=== PATIENT | male | born 1995 | race Caucasian/White ===

== ENCOUNTER 2019-10-03 09:23 | Emergency (ER) | payer SELFPAY ==
[2019-10-03 09:27] VITALS: BP 169/85; PULSE 103; RESP 18; O2SAT 98; BMI 29.5
[2019-10-03 09:34] VITALS: PULSE 98; RESP 16; O2SAT 97
--- NOTE | 2019-10-03 09:36 | XR_ITS ---
WS: [id number] Lumbar spine, 3 views, 10/03/2019 Clinical Data: injury Comparison: None. Findings: No compression fractures or subluxation is seen. No disc space narrowing is seen. The transverse proc esses and SI joints are normal. XR/XR lumbar spine 2-3V* [id number] Impression: Negative lumbar spine.
--- NOTE | 2019-10-03 09:36 | XR_ITS ---
WS: [id number] Thoracic spine, 10/03/2019 Clinical Data: injury Comparison: None. Findings: No compression fractures are seen. The disc heights are normal. XR/XR thoracic spine 3V* [id number] Impression: Negative thoracic spine.
--- NOTE | 2019-10-03 09:36 | XR_ITS ---
WS: [id number] Chest with right rib detail, 10/03/2019 Clinical Data: injury Comparison: None. Findings: The lungs show no nodules, masses, or effusions. The heart is normal. No pneumonia or pneumothorax is seen. The ribs are intact. No rib fractures seen. No subcutaneous emphysema is present. XR/XR ribs RT mn 3V w CXR1V [id number] Impression: Negative chest with right rib detail.
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
--- NOTE | 2019-10-03 09:47 | PC.NURSE ---
Radiology present in room taking images per orders.
[2019-10-03 10:25] VITALS: BP 137/66; PULSE 96; RESP 18; O2SAT 97
== END 2019-10-03 10:26 | disposition home or self-care (01) ==
PROVIDERS: Emergency Provider Nurse Practitioner Family
DX: S20.221A Contusion of right back wall of thorax, initial encounter (principal); V03.90XA Pedestrian on foot injured in collision with car, pick-up truck or van, unspecified whether traffic or nontraffic accident, initial encounter; Y92.481 Parking lot as the place of occurrence of the external cause
CPT/HCPCS: 71101; 72072; 72100; 99281; 99283

== ENCOUNTER 2023-03-12 06:16 | Emergency (ER) | payer OTHER, SELFPAY ==
[2023-03-12 06:19] VITALS: PULSE 73; RESP 18; TEMP 36.5; O2SAT 98; BMI 31.1
[2023-03-12 06:27] VITALS: BP 116/67
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
[2023-03-12] MEDS: tetanus-dipt-pertussis 0.5 mL SDV IM (06:38)
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
[2023-03-12 06:49] VITALS: PULSE 67; RESP 14; O2SAT 96
[2023-03-12 06:57] LABS: Basophils # 0.1 10^3/uL (0.0-0.1); Basophils % 0.9 %; Eosinophils # 0.4 10^3/uL (0.0-0.8); Eosinophils % 4.6 %; Hematocrit 45.4 % (42.0-52.0); Hemoglobin 15.4 g/dL (11.7-16.6); Lymphocytes # 2.8 10^3/uL (0.8-4.8); Lymphocytes % 29.9 %; Mean Corpuscular HGB Conc 33.9 g/dL (30.0-36.0); Mean Corpuscular Hemoglobin 27.7 pg (28.0-34.0); Mean Corpuscular Volume 81.8 fl (80-94); Mean Platelet Volume 10.1 fL (7.4-10.4); Monocytes # 0.6 10^3/uL (0.2-0.9); Monocytes % 6.2 %; Neutrophils # 5.37 10^3/uL (1.8-7.7); Neutrophils % 57.6 %; Nucleated Red Blood Cells % 0 %; Platelet Count 190 10^3/cmm (130-400); Red Blood Count 5.55 10^6/uL (4.1-5.3); Red Cell Distribution Width 12.8 % (12.1-15.1); White Blood Count 9.3 10^3/uL (4.0-10.0)
[2023-03-12] MEDS: iohexol 350 mg/mL 500 mL Btl (per mL) IV (07:07)
[2023-03-12 07:09] LABS: Add Urine Microscopic? NO; Charge for UA Resulting for Rev
[2023-03-12 07:16] LABS: Alanine Aminotransferase 27 U/L (0-41); Albumin Level 4.3 g/dL (3.5-5.2); Alkaline Phosphatase 50 U/L (40-130); Anion Gap 16.9 (5-19); Aspartate Amino Transferase 11 U/L (0-40); Blood Urea Nitrogen 10 mg/dL (6-20); Calcium 9.2 mg/dL (8.5-10.5); Carbon Dioxide 23 mmol/L (22-29); Chloride 102 mmol/L (98-107); Globulin 2.9 g/dL (1.3-4.6); Glomerular Filtration Rate 88.3 mL/min (90-130); Glucose 136 mg/dL (65-115); Osmolality Calculated 287 mOsm/kg (285-295); Potassium 3.9 mmol/L (3.5-5.1); Sodium 138 mmol/L (136-145); Total Bilirubin 0.7 mg/dL (0.15-1.2); Total Protein 7.2 g/dL (6.6-8.7)
[2023-03-12 07:24] LABS: Glucose Urine UA Norm (Normal); Ketones Urine Negative (Negative); Protein Urine Neg (Negative); Urine Appearance Clear (CLEAR); Urine Color Dark Yellow (Yellow); pH Urine 5 (5-7)
[2023-03-12 07:25] LABS: Bilirubin Urine 1+ (Negative); Blood Urine Neg (Negative); Leukocyte Esterase Urine Negative (Negative); Nitrate Urine Negative (Negative); Urobilinogen Urine 1 mg/dL (Negative)
[2023-03-12] MEDS: ondansetron 2 mg/ML SDV 2 mL 4 MG IVP (07:38)
[2023-03-12] MEDS: morphine 4 mg/mL SDV 1 mL IVP (07:38)
[2023-03-12 07:43] VITALS: BP 128/95; PULSE 67; RESP 18; O2SAT 99
--- NOTE | 2023-03-12 08:10 | XR_ITS ---
WS: [id number] Exam: XR wrist LT min 3V* [id number] Date/Time of Exam: 03/12/2023 8:11 AM Reason For Exam: pain trauma There is a comminuted nondisplaced fracture of the distal radius. There is comminution of the radial styloid. Numerous fracture lines extend into the radiocarpal joint. No dislocation identified. Soft t issue swelling noted. XR/XR wrist LT min 3V* [id number] IMPRESSION: 1. Comminuted nondisplaced distal radial fracture as detailed above.
[2023-03-12 09:16] VITALS: BP 145/93; PULSE 76; RESP 18; O2SAT 97
[2023-03-12 09:17] VITALS: BP 145/93; PULSE 76; RESP 18; O2SAT 97
--- NOTE | 2023-03-12 09:53 | PC.SOCIAL ---
Addendum entered by Kenya Monroe 03/29/23 14:26: Patient had a follow up appointment scheduled with ortho - patient did attend appointment Original Note: Ortho F/u Referral sent to ortho at this time. Clinic to contact patient with appt date/time.
== END 2023-03-12 09:45 | disposition home or self-care (01) ==
PROVIDERS: Emergency Provider Family Medicine
DX: S43.102A Unspecified dislocation of left acromioclavicular joint, initial encounter (principal); S52.592A Other fractures of lower end of left radius, initial encounter for closed fracture; S62.002A Unspecified fracture of navicular [scaphoid] bone of left wrist, initial encounter for closed fracture; V20.49XA Other motorcycle driver injured in collision with pedestrian or animal in traffic accident, initial encounter; Z23 Encounter for immunization
CPT/HCPCS: 29125; 70450; 71045; 71260; 72125; 73030; 73110; 74177; 80053; 81003; 85025; 90715; 96374; 96375; 99285; J2270; J2405; Q9967

== ENCOUNTER 2023-03-22 06:54 | Outpatient (CLI) | payer OTHER, SELFPAY ==
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
== END 2023-03-22 06:55 | disposition home or self-care (01) ==
LOC: RAD 06:56
PROVIDERS: Visit Provider Student in an Organized Health Care Education/Training Program
DX: S52.572A Other intraarticular fracture of lower end of left radius, initial encounter for closed fracture (principal); S62.125A Nondisplaced fracture of lunate [semilunar], left wrist, initial encounter for closed fracture; X58.XXXA Exposure to other specified factors, initial encounter
CPT/HCPCS: 73200

== ENCOUNTER 2023-03-23 09:11 | Day surgery (SDC) | payer OTHER, SELFPAY ==
[2023-03-22 09:25] VITALS: BMI 30.2
[2023-03-23] VITALS (12 sets, daily range): BP systolic 101–145; BP diastolic 58–90; PULSE 67–96; RESP 14–16; TEMP 36.1–37.1; O2SAT 96–100
--- NOTE | 2023-03-23 | XR_ITS ---
WS: [id number] XR wrist LT 2V [id number] REASON FOR EXAM: ORIF left wrist FINDINGS: Plate and screw fixation of particle vertical distal mid metaphysis into the radial articular surface . Horizontal fracture of the radial styloid. Fracture fragments are in good position and alignment. Surgical appliances intact and in proper position and alignment. XR/XR wrist LT 2V [id number] IMPRESSION: Left wrist fracture with fixation as above.
[2023-03-23] MEDS: sodium chloride 0.9% 1,000 ML 30 ML IV (10:10)
[2023-03-23] MEDS: acetaminophen 1,000 MG/100 ML PIGGYBACK 400 MG IV (10:11)
[2023-03-23] MEDS: ketorolac 30 mg/mL INJ IVP (10:11)
[2023-03-23] MEDS: scopolamine 1.5 Patch 1 PATCH TRANSDERMA (10:12)
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
--- NOTE | 2023-03-23 11:47 | ANES.PREANE2 ---
Pre-Anesthetic Assessment Height/Weight: Height 1.75 m Weight 92.986 kg Temp Pulse Resp BP Pulse Ox O2 Del Method 98.8 F 96 14 106/67 96 Room Air 03/23/23 09:39 03/23/23 10:50 03/23/23 10:50 03/23/23 10:50 03/23/23 10:50 03/23/23 10:50 Preop Diagnosis: Left Distal Radius fracture Operation Date: 03/23/23 10:40 Proposed Procedures p Open Reduction Internal Fixation of Right Distal Radius 82607, S52.509A(Right) - Garcia Ruiz, Familial anesthetic complications: none Was Beta Lisset taken within 24 hours: N/A Was Clonidine taken within 24 hours: N/A Last intake: Intake Last Liquid Date 03/22/23 Last Liquid Time 21:00 Last Solid Date 03/22/23 Last Solid Time 15:00 Social No alcohol and No tobacco Exam alert, oriented x 3, clear to auscultation bilaterally and regular rate & rhythm Airway Submandibular: within normal limits Cervical ROM: within normal limits Mallampati: Class II Dentition: chipped History/ROS No significant history except as noted Anesthetic Plan ASA status: 1 Anesthesia: General and Regional (specify below) (Left interscalene nerve blk) Medications/Allergies Allergies Allergy/AdvReac Type Severity Reaction Status Date / Time No Known Allergies Allergy Verified 10/03/19 09:34 Current Medications Generic Name Dose Route Start Last Admin Trade Name Freq PRN Reason Stop Dose Admin Sodium Chloride 1,000 mls @ 30 mls/hr 03/23/23 09:30 03/23/23 10:10 Sodium Chloride 0.9% IV 03/24/23 09:29 30 mls/hr .Q24H YURIY Administration Scopolamine 1 patch 03/23/23 09:27 03/23/23 10:12 Scopolamine 1.5 Patch TRANSDERMA 1 patch ONCE PRN Administration anesthetic related nausea PFSH Anesthesia Social History Smoking and tobacco status: never smoked Data Anesthesia Cardiac Studies: No Data to Display
[2023-03-23] MEDS: ceFAZolin 2,000 MG in sodium chloride 0.9% (plus) 50 ML 100 MG IV (11:49)
--- NOTE | 2023-03-23 12:03 | SUR.OPER ---
Family Notified Of Patient's Status Via Phone.
--- NOTE | 2023-03-23 13:24 | SUR.OPER ---
Family Notified Of Patient's Status Via Phone.
--- NOTE | 2023-03-23 14:52 | ANE.PACU2 ---
Inpatient post-anesthesia follow up: Airway intact: Yes Vital signs: Temperature 97.4 F Pulse Rate 78 Respiratory Rate 14 Blood Pressure 141/89 Pulse Oximetry 98 Oxygen Delivery Me thod Room Air Oxygen Flow Rate 6 Fraction of Inspir ed Oxygen Hydration adequate: Yes Nausea and vomiting: No Pain level: 2 Mental status: Baseline
--- NOTE | 2023-03-23 18:44 | PM.OP2 ---
Brief Operative Note Date of procedure: 03/23/23 Pre-op diagnosis: Left distal radius fracture intra-articular Post-op diagnosis: same (4 part intra-articular fracture) Procedure Done: Left distal radius open reduction internal fixation( 4 part intra-articular) Surgeon: Garcia Ruiz Estimated blood loss (mL): 15 Complications: None Post-op Plan: Patient taken to PACU in stable condition recovering well. Splint on in place clean dry and intact. Patient receive appropriate discharge instructions as well as pain medication postoperatively. Elevation ice as needed none weightbearing to left upper extremity. Follow-up in the orthopedic office in 2 weeks. Condition: stable Disposition: same day Coding Level of Care Code Acute Code for Harriett Fwkrystal
--- NOTE | 2023-03-23 18:46 | PM.PACU ---
PACU note Narrative: Patient taken to PACU in stable condition, recovering well. Pain controlled. Patient has regional anesthesia on affect unable assess motor or sensory. Splint on in place clean dry and intact fingertips warm well-perfused brisk cap refill less than 2 seconds. Exam: awake Disposition: discharged
--- NOTE | 2023-03-23 18:47 | P.OP_ITS ---
Operative Report Date of procedure: March 23, 2023 Pre-op diagnosis: Preop Diagnosis Left Distal Radius fracture Procedure: Post-op diagnosis: Same, 4 part intra-articular Procedure done: Left distal radius open reduction internal fixation, 4 part intra-articular Closed treatment Left AC Joint Separation Implants: Arthrex 3-hole standard volar locking plate Combination of locking and nonlocking screws 2.7 mm distal Combination of locking and nonlocking screws 3.5 mm proximal Surgeon: Garcia Ruiz DO Anesthesia: Nerve Block (Regional) Estimated blood loss: 15 mL Tourniquet time: 71 minutes IV fluids: See anesthesia record Complications: None Findings: See operative report narrative Condition: stable Disposition: same day Brief History: Patient is a 27-year-old male who presented to my office for a [id number]-[id number]-[id number] left distal radius fracture.? Patient also sustained a left grade 2 AC joint separation which should be treated closed. Given his articular impaction and depressed fracture fragments of the distal radius and his young age would recommend surgical intervention. We had a detailed discussion in the office about nonoperative and operative intervention.? At this point time I feel through shared decision making her best option would be open reduction internal fixation.?? As result through shared decision making patient would like to proceed with ORIF left distal radius fracture.? Detail the risk benefits complication alternatives to treatment option.? Understanding risk for surgery patient elects to proceed with surgical intervention.? All questions been answered at this time. Procedure: Patient seen and evaluated in the preoperative holding area.? Consent reviewed and signed with patient.? Correct extremities were marked and consent was reviewed and signed.? Patient was seen and evaluated by anesthesia department.? Underwent regional anesthesia. Once cleared for surgery pt was taken back to the operative suite.? Patient was then transported into the operative suite transferred furred to an OR table all bony prominences well-padded patient was appropriate secured to bed in supine position.? An armboard was applied to the left upper extremity.? The left upper extremity had a nonsterile tourniquet applied.? Patient subsequently was then prepped and draped in standard orthopedic fashion she underwent anesthesia per the anesthesia department.? A final timeout was performed.? Patient received appropriate preoperative antibiotics. Esmarch was used exsanguinate the left? upper extremity and tourniquet was insufflated to 250 mmHg. A standard modified FCR volar approach was performed to the left distal radius.? Sharp scalpel incision through skin and subcutaneous tissue.? I then switched to Littler dissection scissors identify the FCR tendon releases out of the sheath both proximally and distally mobilized the tendon ulnarly and then subsequently incised the floor of the FCR tendon sheath with care to just incise the floor.? I then bluntly sweep the FPL tendon muscle belly ulnarly and placed blunt self- retaining retractor.? At this point time I direct visualization of the pronator quadratus which was incised in standard L fashion off the radial and distal border in the distal radius and fracture site was scraped clean of interposed muscle belly.? I then identified the 4 part intra-articular left distal radius fracture.? This was subsequently opened above and freed of interposing muscle belly as well as periosteum and fracture hematoma.? I did have to utilize my [place] which was placed through the fracture pattern and disengage the fracture and performed manual manipulation and anatomic reduction of the distal radius fracture. There was one main dye punch fragment that was depressed that I utilized a [place]'s through the fracture site and localized this with mini C arm and subsequently tamped up this fracture piece to satisfactory position. This held its position on its own as result my plan was to utilize a volar locking plate to [place] the [place] bone and tamped up fracture fragment in order to support this from further depression. ?Once satisfied with reduction and had appropriate anatomic reduction of the volar cortex.? This was confirmed with mini C arm in multiple orthogonal imaging.? At this point time? I selected a Arthrex anatomic distal radius plate utilizing a standard 3-hole plate which would have appropriate spread distally. Given majority of patient's fracture fragments were radial and along the styloid and scaphoid facet I did slightly turn the plate radially just to accommodate for a more focused fixation supporting these fracture fragments. This was then placed up to the distal radius while maintaining my reduction pins were placed distally and proximally to confirm appropriate placement of the plate along the distal radius.? Minor adjustments were made and once I was satisfied I then subsequently drilled a bicortical 3.5 screw proximally in the oblong hole to allow for appropriate sliding of the distal radius plate appropriately to perfect position on the distal radius.? This had excellent fixation and purchase and brought the plate to bone.? While maintaining my reduction I then confirmed in multiple orthogonal imaging that my plate was in appropriate position.? Once satisfied with my position I then subsequently placed the peek targeting guide on the distal locking screws with Arthrex.? The locking guide was then subsequently loaded and I subsequently drilled and placed a fully threaded cortical screw to compress the plate to bone for the distal fracture fragment.? This was performed with plan to then remove this and placed a shorter locking screw had bicortical fixation with excellent purchase and appropriate reduction of my volar tilt and bringing plate to bone of the distal fragment and plate.? Once I was satisfied with my plate position as well as reduction of the distal radius which was confirmed on AP oblique and lateral imaging I then subsequently drilled measured and placed 3 locking screws around this cortical screw.? Then I subsequently removed the cortical screw and placed a shorter locking screw that did not penetrate the dorsal cortex.? I added another locking screw distally towards the radial styloid to further increase my radial styloid fixation. The screw was subsequently drilled measured and placed. This completed my distal fixation.? I did utilize mini C arm to confirm appropriate placement of the screws these were all within the distal radius and no joint involvement within the radiocarpal joint or the DRUJ.? These had appropriate subchondral support and maintenance of reduction and fixation of the distal radius fracture.? I then turned my attention and screwed in the locking guides for my final to screws proximally these were then subsequently drilled measured and appropriate length locking screws were then placed proximally with excellent fixation and locking technology into the plate.? This completed my construct.? The peek guide was subsequently removed and final imaging of the left distal radius open reduction internal fixation was taken of AP lateral as well and is orthogonal imaging.? I then took a inclination view which showed my radial styloid screw was out of the penetration of the joint.? All my distal screws were appropriate length did not penetrate dorsal cortex and did not penetrate the joint.? This completed my fixation.? Wrist was then taken through pronation supination and stressed the DRUJ which was found to be stable.? The wound was then thoroughly irrigated.? Tourniquet was then subsequently deflated.? Hemostasis satisfactory with bipolar electrocautery.? I then subsequently placed interrupted 3-0 Vicryl sutures for subcutaneous tissue and then subsequently placed a nylon the skin for closure.? Incision was then dressed with Xeroform 4 x 4's Kerlix cast padding and a volar Ortho-Glass splint was then applied with Vinayak wrap and placed in a sling.? Disposition: Patient taken to PACU in stable condition recovering well receive appropriate discharge instructions as well as pain medication postoperatively.? Maintain splint until follow-up.? Nonweightbearing left upper extremity We will follow-up with Dr. Ruiz in the office in 2 weeks. We will continue with conservative approach of AC joint as well. If any questions or concerns feel free to contact the office.
== END 2023-03-23 15:30 | disposition home or self-care (01) ==
PROVIDERS: Visit Provider Student in an Organized Health Care Education/Training Program
PROC: (CPT 25609; principal; 2023-03-23 10:40)
DX: S52.572A Other intraarticular fracture of lower end of left radius, initial encounter for closed fracture (principal); S43.102A Unspecified dislocation of left acromioclavicular joint, initial encounter; V29.99XA Rider (driver) (passenger) of other motorcycle injured in unspecified traffic accident, initial encounter
CPT/HCPCS: 25609; 73100; 76000; C1713; J0131; J0690; J1100; J1885; J2250; J2405; J2704; J2795; J3010; J7030

== ENCOUNTER 2023-04-06 06:00 | Outpatient (CLI) | payer OTHER, SELFPAY | END 2023-04-06 06:01 | LOC: SOT 04-09 09:19 | PROVIDERS: Visit Provider Student in an Organized Health Care Education/Training Program | DX: Z46.89 Encounter for fitting and adjustment of other specified devices (principal); S52.502D Unspecified fracture of the lower end of left radius, subsequent encounter for closed fracture with routine healing; X58.XXXD Exposure to other specified factors, subsequent encounter | CPT/HCPCS: 97022; 97110; 97165; 97530; 97760; L3984 ==

== ENCOUNTER → 2023-04-06 07:08 | Outpatient (BNVA) | payer OTHER, SELFPAY | PROVIDERS: Visit Provider Student in an Organized Health Care Education/Training Program | DX: S52.502A Unspecified fracture of the lower end of left radius, initial encounter for closed fracture (principal); X58.XXXA Exposure to other specified factors, initial encounter | CPT/HCPCS: 73110 ==

== ENCOUNTER → 2023-05-04 07:16 | Outpatient (BNVA) | payer OTHER, SELFPAY | PROVIDERS: Visit Provider Student in an Organized Health Care Education/Training Program | DX: S52.502A Unspecified fracture of the lower end of left radius, initial encounter for closed fracture (principal); X58.XXXA Exposure to other specified factors, initial encounter | CPT/HCPCS: 73110 ==

== ENCOUNTER 2023-05-18 06:00 | Outpatient (RCR) | payer OTHER, SELFPAY | END 2023-06-16 23:59 | disposition home or self-care (01) | LOC: SOT 06:00 | PROVIDERS: PCP Student in an Organized Health Care Education/Training Program; Visit Provider Student in an Organized Health Care Education/Training Program | DX: S52.502D Unspecified fracture of the lower end of left radius, subsequent encounter for closed fracture with routine healing (principal); X58.XXXD Exposure to other specified factors, subsequent encounter | CPT/HCPCS: 97022; 97110; 97140 ==

== ENCOUNTER → 2023-11-29 11:11 | Outpatient (BNVA) | payer OTHER, SELFPAY | PROVIDERS: PCP Student in an Organized Health Care Education/Training Program; Visit Provider Physician Assistant | DX: J02.9 Acute pharyngitis, unspecified (principal) | CPT/HCPCS: 87880 ==

== ENCOUNTER 2024-02-21 22:18 | Emergency (ER) | payer OTHER, SELFPAY ==
[2024-02-21 22:22] VITALS: BP 120/87; PULSE 74; RESP 18; TEMP 36.6; O2SAT 98; BMI 29.5
--- NOTE | 2024-02-21 22:47 | ED_ITS ---
HPI - Allergic Reaction General: Chief complaint: Allergic Reaction Stated complaint: Allergic reaction, Breaking out on face Time Seen by Provider: 02/21/24 22:37 Source: patient and family Mode of arrival: ambulatory Limitations: no limitations History of Present Illness: HPI narrative: Patient is a 28-year-old male who presents to the ED with his significant other for evaluation of a possible allergic reaction. Patient states earlier while at home he began noticing pruritus to the palms and soles of his feet. He states he then began breaking out in a rash to his face and anterior chest. He felt like his throat was slightly tight. His significant other gave him a Zyrtec and states within an hour of taking this medication almost all of his symptoms resolved. Upon arrival to the emergency department he states rash is fully resolved and he does not complain of any throat itching or swelling. MD complaint: allergic reaction Onset (ago): hour(s) Exposure: unknown Associated symptoms: Reports itching; Deny abdominal pain, dizziness, nausea or vomiting Severity: mild Treatment prior to arrival: other (Zyrtec) Previous Allergic Reaction History: none Review of Systems Const: Denies: fever(s), chills, body aches, fatigue or malaise ENMT: Denies: swelling of lips/tongue Card: Denies: chest pain Resp: Denies: dyspnea GI: Denies: abdominal pain, nausea, vomiting or diarrhea Musc: Denies: neck pain, back pain, extremity pain or joint pain Skin/Breast: Reports: rash and pruritus Neuro: Denies: headache(s), numbness in extremities, weakness in extremities, sensory changes or dizziness [facility] ED PFSH: Social History Smoking and tobacco/nicotine status: never used tobacco/nicotine Physical Exam Const: COMMON NORMALS: no acute distress, average body habitus, patient oriented x3, no limitations, healthy appearing, alert and well nourished GENERAL APPEARANCE: cooperative ORIENTATION/CONSCIOUSNESS: Yes awake, Yes oriented to person, Yes oriented to place and Yes oriented to time HENMT: MOUTH: Normal oral and palatal mucosa present, lip normal and tongue normal THROAT: posterior oropharynx normal Eye: GENERAL EYE: appearance normal, both eyes and all related structures Resp: COMMON NORMALS: normal respiratory effort Neuro: COMMON NORMALS: patient oriented x3 SENSORIUM/ORIENTATION: Yes alert, Yes oriented to person, Yes oriented to place and Yes oriented to time Skin: COMMON NORMALS: no rashes or lesions noted GENERAL SKIN EXAM: no rashes or lesions noted Course Vital Signs: Vital signs: Vital Signs Temperature 98 F 02/21/24 22:22 Pulse Rate 74 02/21/24 22:22 Respiratory Rate 18 02/21/24 22:22 Blood Pressure 120/87 02/21/24 22:22 Pulse Oximetry 98 02/21/24 22:22 MDM - Allergic Reaction Medical Decision Making Symptoms have fully ablated upon arrival to the emergency department. He appears no acute distress. Patient is stable for discharge with strict return precautions. He has no prior history of anaphylactic reactions. Differential Diagnosis Likely allergic reaction Medical Records I reviewed the patient's medical records. No radiology studies performed this visit Discharge Plan Discharge Patient Disposition: Home Clinical Impression: Allergic reaction Condition: Stable Prescriptions: No Action amoxicillin 500 mg capsule 1,000 mg PO BID 10 Days Qty: 40 0RF Discharge Orders: Discharge ED (Routine); Ordered 02/21/24 Ordered By: Fannie Rojas Patient Instructions: Allergic Reaction, General Allergic Reaction (ED) Coding Level of Care Code ED [employer] Systems Administrator for Harriett Gomez
[2024-02-21 23:05] VITALS: PULSE 76; O2SAT 97
== END 2024-02-21 23:06 | disposition home or self-care (01) ==
PROVIDERS: Emergency Provider Physician Assistant
DX: L29.9 Pruritus, unspecified (principal)
CPT/HCPCS: 99281

== ENCOUNTER 2024-06-28 09:57 | Emergency (ER) | payer OTHER, SELFPAY ==
[2024-06-28 10:07] VITALS: BP 132/83; PULSE 74; RESP 16; TEMP 37; O2SAT 100; BMI 28.0
[2024-06-28 10:38] VITALS: BP 132/83; PULSE 77; O2SAT 97
[2024-06-28] MEDS: fluorescein 1 mg Strip EYE-RIGHT (11:29)
[2024-06-28] MEDS: tetracaine 0.5% Op Soln 4 mL Btl 1 DROP EYE-RIGHT (11:29)
[2024-06-28 12:01] VITALS: BP 132/83; PULSE 77; O2SAT 97
--- NOTE | 2024-06-28 12:36 | ED_ITS ---
HPI - Skin/Abscess/Foreign Bdy General: Chief complaint: Skin/Abscess/Foreign Body Stated complaint: metal in eye Time Seen by Provider: 06/28/24 10:19 History of Present Illness: 28-year-old male presents emergency room he got a piece of metal in his right eye while blowing some metal shavings in his shop. This happened last night he was seen at a local clinic this morning they referred him here. His tetanus is up-to-date. No other injuries he is able to see but his eyes very irritated inflamed and watering. Associated symptoms: Deny chills or fever(s) Related Data Previous Rx's Medication Instructions Recorded cyclobenzaprine 5 mg tablet 5 mg PO TID PRN muscle spasm #20 05/21/24 tabs erythromycin 5 mg/gram (0.5 %) eye 0.5 inch ophthalmic (eye) QID 7 05/21/24 ointment (3.5 gram tube) days #3.5 grams erythromycin 5 mg/gram (0.5 %) eye 0.5 inch ophthalmic (eye) Q6H #3.5 06/28/24 ointment (3.5 gram tube) grams ketorolac 0.4 % eye drops 1 drp ophthalmic (eye) Q6H 4 days 06/28/24 #5 mL Allergies Allergy/AdvReac Type Severity Reaction Status Date / Time No Known Allergies Allergy Verified 05/21/24 09:07 Review of Systems Const: Denies: fever(s) or chills Card: Denies: chest pain Resp: Denies: dyspnea GI: Denies: abdominal pain : Denies: dysuria, urinary frequency or urinary urgency Musc: Denies: neck pain or back pain Skin/Breast: Denies: rash [facility] PFSH: Social History Smoking and tobacco/nicotine status: unknown if used tobacco/nicotine Physical Exam Const: GENERAL APPEARANCE: cooperative ORIENTATION/CONSCIOUSNESS: Yes lara ke, Yes oriented to person, Yes oriented to place and Yes oriented to time HENMT: COMMON NORMALS: normocephalic, atraumatic and hearing grossly normal bilaterally HEAD & SCALP: normocephalic and atraumatic Eye: OTHER: Sinusitis with tetracaine gross visual exam there is a small speck in the iris at the 7 8 o'clock position does not appear to be any foreign body there is difficult to tell on gross exam for the rest draining or discoloration in the iris itself. Under fluorescein dye with black light there is a definite abrasion in this area slit-lamp exam shows it is a rust ring but there is no metallic foreign body present. Bur used to try to remove was able to remove a portion of the rust ring but the deeper portions was not able to get to. Resp: COMMON NORMALS: normal respiratory effort, No retractions, No use of accessory muscles and clear to auscultation bilaterally AUSCULTATION: clear to auscultation bilaterally Cardio: COMMON NORMALS: regular rate, regular rhythm and No murmurs present (Cardio) RATE: regular rate RHYTHM: regular rhythm Extremity: COMMON NORMALS: normal to inspection, capillary refill normal, no clubbing, cyanosis or edema, no calf tenderness and no pedal edema Neuro: SENSORIUM/ORIENTATION: Yes oriented to person, Yes oriented to place and Yes oriented to time Skin: COMMON NORMALS: no rashes or lesions noted GENERAL SKIN EXAM: no rashes or lesions noted Course Vital Signs: Vital signs: Vital Signs Temperature 98.6 F 06/28/24 10:07 Pulse Rate 77 06/28/24 12:01 Respiratory Rate 16 06/28/24 10:07 Blood Pressure 132/83 06/28/24 12:01 Pulse Oximetry 97 06/28/24 12:01 Oxygen Delivery Me thod Room Air 06/28/24 10:38 MDM - Skin/Abscess/Foreign Bdy Medicial Decision Making Fluorescein exam showed an abrasion around the 7 to 8 o'clock position in the outer portion of the right eye. On slit-lamp exam it has a rust ring with there is no retained foreign body. We attempted to remove the rust ring with ophthalmic bur however it was fairly deep and only was able to get the superficial portion of. It was a significant improvement but not complete. Discussed with on-call ophthalmology they will see patient on Sunday to further evaluate and treat as needed. Prescribed erythromycin ointment half- inch in the left eye 4 times a day as well as ketorolac eyedrops follow-up with ophthalmology as planned tetanus is up-to-date No radiology studies performed this visit Discharge Plan Discharge Patient Disposition: Home Clinical Impression: Abrasion, corneal, Corneal rust ring of right eye Condition: Stable Prescriptions: New ketorolac 0.4 % drops 1 drp ophthalmic (eye) Q6H 4 Days Qty: 5 0RF erythromycin 5 mg/gram (0.5 %) ointment 0.5 inch ophthalmic (eye) Q6H Qty: 3.5 0RF No Action erythromycin 5 mg/gram (0.5 %) ointment 0.5 inch ophthalmic (eye) QID 7 Days Qty: 3.5 0RF cyclobenzaprine 5 mg tablet 5 mg PO TID PRN (Reason: muscle spasm) Qty: 20 0RF Discharge Orders: Discharge ED (Routine); Ordered 06/28/24 Ordered By: Alfred Baez Referrals: Jaspreet Reardon [Physician] - (Sunday 8 AM) Discharge Diet: Usual diet Discharge Activity: Resume usual activity Patient Instructions: Corneal Abrasion (ED), Opioid Safety, Pain Management Activity Restrictions/Additional Instructions: Thank you for choosing [facility] for your healthcare needs today. It is very important that you follow up as instructed or that you return to the Emergency Department should you have concerns or if your condition changes or worsens in any way. You are seen in the emergency room with a complaint of foreign body in the left eye. There is a rust ring present. But no foreign body. We did remove a portion of the rust ring but the deepest portions are deeper than we could remove it and we will recommend that you follow-up at Dr. Reardon's office on Sunday at 8:00. Coding Level of Care Code ED M[employer] Inspector for Harriett Goemz
== END 2024-06-28 12:02 | disposition home or self-care (01) ==
PROVIDERS: Emergency Provider Family Medicine
DX: S05.01XA Injury of conjunctiva and corneal abrasion without foreign body, right eye, initial encounter (principal); X58.XXXA Exposure to other specified factors, initial encounter
CPT/HCPCS: 99283